=== PATIENT | male | born 1960 | race Caucasian/White ===

== ENCOUNTER 2025-06-21 20:17 | Inpatient (IN) | payer MEDICAID ==
[~2025-06-21] VITALS: Ht 193 cm; Wt 100.0 kg
[2025-06-21 21:48] LABS: PLATELET COUNT (AUTO) 191 K/uL (150-450); RED BLOOD CELL COUNT(AUTO) 4.88 MIL/uL (4.50-5.90); RED CELL DISTRIBUTION WIDTH 13.0 % (11.5-14.5); WHITE BLOOD COUNT (AUTO) 9.5 K/uL (4.5-11.0)
[2025-06-21 21:56] LABS: ASPARTATE AMINOTRANSFERASE 21.0 U/L (15-37); TOTAL PROTEIN, SERUM 6.8 g/dL (6.4-8.2)
[2025-06-21 22:05] LABS: CALCIUM, TOTAL 8.2 mg/dL (8.8-10.5); CREATININE 0.80 mg/dL (0.60-1.30); GLOMERULAR FILTR. RATE CALC > 60 mL/min (>60); GLUCOSE,RANDOM 124 mg/dL (70-110); SODIUM SERUM 140 mmol/L (136-145); UREA NITROGEN, BLOOD 21 mg/dL (7-18)
[2025-06-21] MEDS: KETOROLAC TROMETHAMINE 30 MG/ML VIAL IVP ONE (22:23)
[2025-06-21] MEDS: FentaNYL CITRATE PF 100 MCG/2 ML VIAL IVP ONE (22:23)
[2025-06-21] MEDS: ONDANSETRON HCL 4 MG/2 ML VIAL IVP ONE (22:24)
[2025-06-22] MEDS: CeFAZolin 1 GM/DEXTROSE 50 ML IV ONE (00:41)
[2025-06-22] MEDS ORDERED: ONDANSETRON HCL 4 MG/2 ML VIAL IVP PRN (01:15)
[2025-06-22] MEDS ORDERED: NALOXONE HCL 1 MG/ML 2 ML SYRINGE IVP PRN (01:15)
[2025-06-22] MEDS ORDERED: ACETAMINOPHEN 325 MG TABLET PO PRN (01:15)
[2025-06-22] MEDS: RINGERS SOLUTION,LACTATED 1,000 ML IV SCH (02:01)
[2025-06-22 04:00] VITALS: BP 123/57; PULSE 101; RESP 20; TEMP 98.2; O2SAT 95
[2025-06-22] MEDS: MORPHINE SULFATE 4 MG/ML SYRINGE IVP PRN (04:00)
[2025-06-22] MEDS ORDERED: ROCURONIUM BROMIDE 10 MG/ML 5 ML VIAL ONE (07:47)
[2025-06-22] MEDS ORDERED: DEXAMETHASONE SOD PHOS 4 MG/ML VIAL ONE (07:47)
[2025-06-22] MEDS ORDERED: METOCLOPRAMIDE HCL 5 MG/ML 2 ML VIAL ONE (07:47)
[2025-06-22] MEDS ORDERED: KETOROLAC TROMETHAMINE 60 MG/2 ML VIAL IM ONE (07:47)
[2025-06-22] MEDS ORDERED: LIDOCAINE/PF 2% 5 ML VIAL ONE (07:47)
[2025-06-22] MEDS ORDERED: ONDANSETRON HCL 4 MG/2 ML VIAL ONE (07:47)
[2025-06-22] MEDS ORDERED: SUGAMMADEX SODIUM 200 MG/2 ML VIAL IVP ONE (07:47)
[2025-06-22 08:25] VITALS: BP 115/70; PULSE 93; RESP 17; TEMP 98.2; O2SAT 91
[2025-06-22] MEDS: PIPERACILLIN SODIUM/TAZOBACTAM 4.5 GM in DEXTROSE 5%-WATER 100 ML IV SCH (08:28)
[2025-06-22] MEDS: DOCUSATE SODIUM 100 MG CAPSULE PO SCH (08:30)
[2025-06-22] MEDS ORDERED: SODIUM CHLORIDE 0.9% 500 ML IV ONE (08:37)
[2025-06-22] MEDS ORDERED: MIDAZOLAM HCL 2 MG/2 ML VIAL ONE (09:33)
[2025-06-22] MEDS ORDERED: FentaNYL CITRATE PF 100 MCG/2 ML VIAL ONE (09:33)
[2025-06-22] MEDS ORDERED: RINGERS SOLUTION,LACTATED 0 ML IV ONE (09:40)
[2025-06-22] MEDS: MORPHINE SULFATE 4 MG/ML SYRINGE IVP ONE (10:38)
[2025-06-22] MEDS ORDERED: BUPIVACAINE HCL/PF 0.25% 30 ML VIAL ONE (10:59)
[2025-06-22] MEDS ORDERED: RINGERS SOLUTION,LACTATED 1,000 ML IV ONE ×2 (11:00→14:13)
[2025-06-22] MEDS: CHLORHEXIDINE GLUCONATE 2% TOWELETTE [2'S/6'S] TP ONE (11:29)
[2025-06-22] MEDS: ETHYL ALCOHOL 62% ANTISEPTIC NASAL SANITIZER 0.6 ML AMPUL NASAL ONE (11:29)
[2025-06-22] MEDS: RINGERS SOLUTION,LACTATED 1,000 ML IV ONE (11:32)
[2025-06-22] MEDS ORDERED: MetroNIDAZOLE 500 MG/NACL 100 ML IV ONE (12:31)
[2025-06-22] MEDS: BUPIVACAINE 0.25%/EPI 1:200,000/PF 30 ML VIAL ONE (12:50)
[2025-06-22] MEDS ORDERED: MORPHINE SULFATE 4 MG/ML SYRINGE IVP PRN (13:15)
[2025-06-22] MEDS: FAMOTIDINE 20 MG TABLET PO SCH (16:34)
[2025-06-22] MEDS: IBUPROFEN 200 MG TABLET PO SCH (16:35)
[2025-06-22 17:47] VITALS: BP 110/67; PULSE 72; RESP 18; TEMP 97.9; O2SAT 93
[2025-06-22 19:55] VITALS: BP 120/67; PULSE 65; RESP 18; TEMP 97.7; O2SAT 96
[2025-06-23 04:25] VITALS: BP 105/60; PULSE 61; RESP 18; TEMP 97.6; O2SAT 96
[2025-06-23] MEDS: HYDROCODONE/ACETAMINOPHEN 5-325 MG TABLET PO PRN (05:34)
[2025-06-23 06:44] LABS: PLATELET COUNT (AUTO) 148 K/uL (150-450); RED BLOOD CELL COUNT(AUTO) 4.25 MIL/uL (4.50-5.90); RED CELL DISTRIBUTION WIDTH 13.1 % (11.5-14.5); WHITE BLOOD COUNT (AUTO) 8.3 K/uL (4.5-11.0)
[2025-06-23 07:06] LABS: CALCIUM, TOTAL 7.8 mg/dL (8.8-10.5); CREATININE 0.85 mg/dL (0.60-1.30); GLOMERULAR FILTR. RATE CALC > 60 mL/min (>60); GLUCOSE,RANDOM 105 mg/dL (70-110); SODIUM SERUM 140 mmol/L (136-145); UREA NITROGEN, BLOOD 21 mg/dL (7-18)
[2025-06-23] MEDS: MORPHINE SULFATE 4 MG/ML SYRINGE IVP PRN (07:58)
[2025-06-23] MEDS: HEPARIN SODIUM,PORCINE 5,000 UNITS/ML VIAL SQ SCH (07:59)
[2025-06-23 08:17] VITALS: BP 108/69; PULSE 59; RESP 18; TEMP 97.7; O2SAT 97
[2025-06-23] MEDS ORDERED: IPRATROPIUM BROMIDE 0.5 MG/2.5 ML NEB SOLUTION NEB PRN (13:15)
[2025-06-23] MEDS ORDERED: ALBUTEROL SULFATE 2.5 MG/0.5 ML NEB SOLUTION NEB PRN (13:15)
[2025-06-23 16:02] VITALS: BP 116/74; PULSE 75; RESP 18; TEMP 97.5; O2SAT 96
[2025-06-23 20:00] VITALS: BP 140/78; PULSE 62; RESP 20; TEMP 97.9; O2SAT 95
[2025-06-24 04:11] VITALS: BP 107/65; PULSE 84; RESP 20; TEMP 98.2; O2SAT 94
[2025-06-24 09:15] VITALS: BP 116/58; PULSE 67; RESP 17; TEMP 98.1; O2SAT 96
[2025-06-24] MEDS ORDERED: MAGNESIUM HYDROXIDE SUSPENSION 30 ML UDCUP PO PRN (12:45)
[2025-06-24 16:27] VITALS: BP 126/67; RESP 18; TEMP 97.6; O2SAT 97
[2025-06-24 20:26] VITALS: BP 100/58; PULSE 58; RESP 20; TEMP 97.3; O2SAT 92
[2025-06-24] MEDS: ZOLPIDEM TARTRATE 5 MG TABLET PO PRN (20:44)
[2025-06-25 04:56] VITALS: BP 110/52; PULSE 70; RESP 20; TEMP 98.6; O2SAT 98
[2025-06-25 07:08] LABS: PLATELET COUNT (AUTO) 147 K/uL (150-450); RED BLOOD CELL COUNT(AUTO) 4.22 MIL/uL (4.50-5.90); RED CELL DISTRIBUTION WIDTH 12.9 % (11.5-14.5); WHITE BLOOD COUNT (AUTO) 6.0 K/uL (4.5-11.0)
[2025-06-25 07:20] LABS: CALCIUM, TOTAL 8.1 mg/dL (8.8-10.5); CREATININE 0.77 mg/dL (0.60-1.30); GLOMERULAR FILTR. RATE CALC > 60 mL/min (>60); GLUCOSE,RANDOM 91 mg/dL (70-110); SODIUM SERUM 139 mmol/L (136-145); UREA NITROGEN, BLOOD 12 mg/dL (7-18)
[2025-06-25 08:00] VITALS: BP 111/61; PULSE 78; RESP 18; TEMP 97.5; O2SAT 97
[2025-06-25] MEDS: CEFEPIME HCL 2 GM in DEXTROSE 5%-WATER 50 ML IV SCH (12:54)
[2025-06-25] MEDS: MetroNIDAZOLE 500 MG/NACL 100 ML IV SCH (15:08)
[2025-06-25 15:36] VITALS: BP 125/66; PULSE 83; RESP 18; TEMP 97.9; O2SAT 96
[2025-06-25 20:53] VITALS: BP 102/76; PULSE 61; RESP 18; TEMP 97.5; O2SAT 94
[2025-06-26 04:40] VITALS: BP 120/60; PULSE 54; RESP 18; TEMP 97.5; O2SAT 97
[2025-06-26 06:34] LABS: PLATELET COUNT (AUTO) 150 K/uL (150-450); RED BLOOD CELL COUNT(AUTO) 4.42 MIL/uL (4.50-5.90); RED CELL DISTRIBUTION WIDTH 12.8 % (11.5-14.5); WHITE BLOOD COUNT (AUTO) 5.3 K/uL (4.5-11.0)
[2025-06-26 06:46] LABS: CALCIUM, TOTAL 8.3 mg/dL (8.8-10.5); CREATININE 0.61 mg/dL (0.60-1.30); GLOMERULAR FILTR. RATE CALC > 60 mL/min (>60); GLUCOSE,RANDOM 97 mg/dL (70-110); SODIUM SERUM 141 mmol/L (136-145); UREA NITROGEN, BLOOD 12 mg/dL (7-18)
[2025-06-26 08:16] VITALS: BP 112/55; PULSE 59; RESP 18; TEMP 97.9; O2SAT 97
[2025-06-26] MEDS ORDERED: AMOX-457 PO (14:17)
[2025-06-26 14:55] LABS: APPEARANCE,URINE CLEAR (CLEAR); GLUCOSE, URINE (UA) NEGATIVE (NEGATIVE); LEUKOCYTE ESTERASE ,URINE TRACE (NEGATIVE); NITRATE,URINE NEGATIVE (NEGATIVE); OCCULT BLOOD,URINE NEGATIVE (NEGATIVE); SPECIFIC GRAVITIY, URINE 1.031 (1.003-1.030)
[2025-06-26 15:04] LABS: SQUAMOUS EPITHELIAL CELL,UR Few /LPF (None Seen)
[2025-06-26 16:22] VITALS: BP 125/95; PULSE 67; RESP 18; TEMP 97.3; O2SAT 97
== END 2025-06-26 20:23 | disposition home or self-care (01) | DRG 233 ==
LOC: EMS 20:17 → EDH 06-22 01:13 → 6S 06-22 03:50 → 4E 06-24 18:15
PROVIDERS: ADMIT Internal Medicine; ATTEND Internal Medicine
PROC: 0W9G4ZZ Drainage of Peritoneal Cavity, Percutaneous Endoscopic Approach (ICD-10-PCS; 2025-06-22)
PROC: 0DTJ4ZZ Resection of Appendix, Percutaneous Endoscopic Approach (ICD-10-PCS; principal; 2025-06-22 12:17)
DX: K35.201 Acute appendicitis with generalized peritonitis, with perforation, without abscess (principal); J95.821 Acute postprocedural respiratory failure; R73.9 Hyperglycemia, unspecified; B96.5 Pseudomonas (aeruginosa) (mallei) (pseudomallei) as the cause of diseases classified elsewhere; E86.0 Dehydration; Z87.891 Personal history of nicotine dependence
CPT/HCPCS: 74176; 80048; 80076; 81001; 83690; 83735; 84145; 85025; 87070; 87186; 87205; 88304; 93005; 96374; 96375; 97161; 97165; 97530; 99285; G0238; G0378; J0690; J0692; J1100; J1171; J1644; J1885; J2250; J2270; J2405; J2543; J2765; J3010; J3490; J7040; J7060; J7120